=== PATIENT | female | born 1995 | race Caucasian/White ===

== ENCOUNTER → 2017-01-20 | Outpatient (CLI) | payer OTHER ==
[2017-01-20 16:00] LABS: HEMATOCRIT 42.3 % (37.0-47.0); HEMOGLOBIN 14.2 g/dl (12.0-16.0); MEAN CELL VOLUME 81.7 fl (81.0-99.0); MEAN CORPUSCULAR HGB 27.4 pg (27.0-31.0); MEAN CORPUSCULAR HGB CONC 33.6 g/dl (33.0-37.0); MEAN PLATELET VOLUME 9.3 fl (9.6-12.3); PLATELET COUNT AUTOMATED 535 10*3/uL (130-400); RED BLOOD COUNT 5.18 10*6/uL (4.10-5.10); RED CELL DISTRI WIDTH 12.5 % (0-14.5); WHITE BLOOD COUNT 21.8 10*3/uL (4.8-10.8)
[2017-01-20 16:20] LABS: EOSINOPHIL # 0.2 10*3/uL (0-0.4); EOSINOPHILS 1 % (1-4); LYMPHOCYTE # 3.9 10*3/uL (1.3-4.4); MONOCYTE # 0.7 10*3/uL (0.1-1.0); NEUTROPHILS 78 % (47-73); PLATELET SUFFICIENCY HIGH (NORMAL); TOTAL CELLS COUNTED 100 #CELLS
[2017-01-20 16:35] LABS: ALBUMIN 3.7 gm/dl (3.1-4.5); BILIRUBIN, DIRECT 0.1 mg/dL (0.0-0.2); BILIRUBIN, TOTAL 0.7 mg/dl (0.2-1.0); TOTAL PROTEIN 8.1 gm/dL (6.4-8.2)
== END | disposition home or self-care (01) ==
LOC: LAB 15:33
PROVIDERS: Otolaryngology
DX: J35.01 Chronic tonsillitis (principal)